=== PATIENT | female | born 1960 | race Caucasian/White ===

== ENCOUNTER → 2018-08-08 | Outpatient (CLI) | payer OTHER ==
[~2018-08-08] MED LIST: ASPIR 8181 MG PO; CO Q-10100 MG PO; COZAAR 50 MG TA50 M2 PO; DUONEB 2.5-0.5 M3 ML INH; FLEXERIL PO; FLONASE 0.05%50 MCG NASAL; LEVOTHYROXIN0.025 MG PO; LOVASTATIN 20 M20 MG PO; MUCINEX TA600 MG/TA2 PO; NAPROSYN500 MG PO; PERCOCET PO; PREDNISONE50 MG PO; TESSALON PERLE100 MG PO; TOPROL XL25 MG PO; VENTOLIN HFA 1818 GM INH; [UNRECOGNIZED DRUG - OTHER]
== END ==
LOC: M.RAD 13:54
DX: Z12.31 Encounter for screening mammogram for malignant neoplasm of breast (principal); N95.1 Menopausal and female climacteric states; M81.0 Age-related osteoporosis without current pathological fracture; M85.89 Other specified disorders of bone density and structure, multiple sites; Z88.8 Allergy status to other drugs, medicaments and biological substances

== ENCOUNTER → 2019-01-10 | Outpatient (CLI) | payer OTHER | LOC: M.RAD 10:29 | DX: M48.061 Spinal stenosis, lumbar region without neurogenic claudication (principal); M43.17 Spondylolisthesis, lumbosacral region; M76.9 Unspecified enthesopathy, lower limb, excluding foot; M54.40 Lumbago with sciatica, unspecified side ==

== ENCOUNTER → 2019-01-21 | Outpatient (CLI) | payer OTHER | LOC: M.RAD 10:20 | DX: M25.512 Pain in left shoulder (principal) ==